=== PATIENT | male | born 1980 | race Caucasian/White ===

== ENCOUNTER 2024-03-02 22:48 | Emergency (ER) | payer OTHER, SELFPAY ==
[2024-03-02 22:50] VITALS: BP 114/75
--- NOTE | 2024-03-02 23:11 | ED.GENMED ---
History of Present Illness
<MAXWELL Shepard - Last Filed: 03/03/24 01:54>
General
Chief Complaint: Abdominal Symptoms
Source: patient and significant other
Exam Limitations: clinical condition (actively retching and vomiting)
Time Seen by Provider: 03/02/24 23:09
Nursing documentation reviewed up to this point in time: agreed with
History of Present Illness
History of Present Illness:
Pt is a 43 yo M with no significant PMH who presents to the ED with nausea, vomiting and diarrhea x 4 hours. He states he began to feel bad when he got home from work and then symptoms onset around 19:00. He states he has had 6-7 episodes of
non-bloody vomiting and multiple episodes of non-bloody, watery diarrhea. He states he feels very dehydrated and fatigued. Pt states the only thing he has to eat today was a hoagie from [employer] and thinks he may have food poisoning. Pt denies sick
contacts. Pt denies ROMERO, chest pain, cough, SOB, dyspnea.
If applicable-neuro sx onset
Onset of symptoms known: Yes
Date of onset of symptoms: 03/02/24
Time of onset of symptoms: 19:00
Past History
<MAXWELL Shepard - Last Filed: 03/03/24 01:54>
Past History
ED Past Medical History: None
ED Past Surgical History: None
Social History
Tobacco: Non-smoker
Alcohol: Occasional
Drug: None
Personal:
Living: with family
Employment: Employed
Family History
Family History: Cancer (Mother had breast cancer)
Review of Systems
<MAXWELL Shepard - Last Filed: 03/03/24 01:54>
Review of Systems
Allergies reviewed?: Yes
Other source history: family
Constitutional: Reports fatigue; Denies fever or chills
Respiratory: Denies cough or trouble breathing
Cardiac: Denies chest pain
ABD/GI: Reports abdominal pain, nausea, vomiting and diarrhea; Denies bloody stools or black stools
: Denies dysuria or flank pain
Musculoskeletal: Reports no symptoms
Neurological: Denies dizzy, headache, weakness or numbness
Phy Exam
<ST DreaNE - Last Filed: 03/03/24 01:54>
General Physical Exam
General Presentation: moderate distress (actively retching)
General age: appears stated age
General Skin: warm and diaphoretic
General Habitus: normal
General Mental: alert
General Hydration: dry mucous membranes
Cardiovascular Exam
Cardiovascular Exam: no gallop, no murmur and tachycardia
Pulmonary Exam
Pulmonary Exam: lungs clear and no respiratory distress
Gastrointestinal Exam
Gastrointestinal Exam: non distended, no cva tenderness and guarding
Palpation: generalized: Moderate tenderness
Neurological Exam
Neurological Exam: alert, oriented x3, no motor deficits, no sensory deficits and speech normal
<Alfredo Briscoe DO - Last Filed: 03/03/24 01:07>
Physical Exam
Physical Exam:
Physical Exam
General: 43 male vomiting
Neck: Lips are slightly dry
Heart: s1/s2 regular rate and rhythm, no murmur. equal radial pulses.
Lungs: no acute respiratory distress. clear bilaterally
Abdomen: Soft mild diffuse tenderness
Neuro: alert and oriented. no focal neurological deficits
Skin: no rash
Psychiatric: well kept. interactive and cooperative
Extremities: no edema.
Course
<MAXWELL Shepard - Last Filed: 03/03/24 01:54>
Orders/Labs/Results
Orders:
Orders
03/02/24 23:20
0.9% Sodium Chloride 1000 ml [Nss] 1,000 ml IV BOLUS
Ondansetron Injectable [Zofran] 4 mg IV NOW STA
03/02/24 23:40
Complete Blood Count/With Diff Urgent
Comprehensive Metabolic Panel Urgent
Lipase Urgent
03/03/24 01:07
Ondansetron Orally Disint [Zofran Odt (Orally Disintegrating)] 4 mg PO NOW STA
Abnormal Lab Results
03/02/24
23:40
WBC 14.5 H 10^3/uL
(4.8-10.8)
MPV 10.7 H fL
(7.4-10.4)
Abs Immat Gran (auto) 0.1 H 10^3/uL
(0-0.05)
Absolute Neuts (auto) 13.4 H 10^3/uL
(1.4-6.5)
Absolute Lymphs (auto) 0.3 L 10^3/uL
(1.2-3.4)
Immature Gran % 0.6 H %
(0-0.5)
Neutrophils % 92.8 H %
(42.2-75.2)
Lymphocytes % 2.3 L %
(20.5-51.1)
Carbon Dioxide 16 L mmol/L
(22-30)
BUN 22 H mg/dl
(9-20)
Glucose 156 H mg/dl
(70-99)
Total Bilirubin 1.8 H mg/dl
(0.2-1.3)
Albumin 5.1 H g/dl
(3.5-5.0)
03/02/24 23:40
03/02/24 23:40
Vital Signs
Initial and Last Documented VS:
Initial Vital Signs
Temp Pulse Resp BP Pulse Ox
98.4 F 104 20 114/75 98
03/02/24 22:50 03/02/24 22:50 03/02/24 22:50 03/02/24 22:50 03/02/24 22:50
Last Documented Vital Signs
Temp Pulse Resp BP Pulse Ox
98.4 F 104 20 114/75 98
03/02/24 22:50 03/02/24 22:50 03/02/24 22:50 03/02/24 22:50 03/02/24 22:50
<Alfredo Briscoe, DO - Last Filed: 03/03/24 01:07>
Orders/Labs/Results
Orders:
Orders
03/02/24 23:20
0.9% Sodium Chloride 1000 ml [Nss] 1,000 ml IV BOLUS
Ondansetron Injectable [Zofran] 4 mg IV NOW STA
03/02/24 23:40
Complete Blood Count/With Diff Urgent
Comprehensive Metabolic Panel Urgent
Lipase Urgent
03/03/24 01:07
Ondansetron Orally Disint [Zofran Odt (Orally Disintegrating)] 4 mg PO NOW STA
Abnormal Lab Results
03/02/24
23:40
WBC 14.5 H 10^3/uL
(4.8-10.8)
MPV 10.7 H fL
(7.4-10.4)
Abs Immat Gran (auto) 0.1 H 10^3/uL
(0-0.05)
Absolute Neuts (auto) 13.4 H 10^3/uL
(1.4-6.5)
Absolute Lymphs (auto) 0.3 L 10^3/uL
(1.2-3.4)
Immature Gran % 0.6 H %
(0-0.5)
Neutrophils % 92.8 H %
(42.2-75.2)
Lymphocytes % 2.3 L %
(20.5-51.1)
Carbon Dioxide 16 L mmol/L
(22-30)
BUN 22 H mg/dl
(9-20)
Glucose 156 H mg/dl
(70-99)
Total Bilirubin 1.8 H mg/dl
(0.2-1.3)
Albumin 5.1 H g/dl
(3.5-5.0)
03/02/24 23:40
03/02/24 23:40
Vital Signs
Initial and Last Documented VS:
Initial Vital Signs
Temp Pulse Resp BP Pulse Ox
98.4 F 104 20 114/75 98
03/02/24 22:50 03/02/24 22:50 03/02/24 22:50 03/02/24 22:50 03/02/24 22:50
Last Documented Vital Signs
Temp Pulse Resp BP Pulse Ox
98.4 F 104 20 114/75 98
03/02/24 22:50 03/02/24 22:50 03/02/24 22:50 03/02/24 22:50 03/02/24 22:50
<MAXWELL Shepard - Last Filed: 03/03/24 01:54>
MDM/Problems Addressed
Differential Diagnosis Includes:
acute gastroenteritis, pancreatitis, cholelithiasis, kidney stones
<Alfredo Briscoe DO - Last Filed: 03/03/24 01:07>
MDM/Problems Addressed
Differential Diagnosis Includes:
Norovirus enteritis Food poisoning less likely appendicitis or gallbladder
MDM/Problems Addressed:
Nausea vomiting diarrhea
<MAXWELL Shepard - Last Filed: 03/03/24 01:54>
*Critical Care Note
Total Time (30-74mins, 75-104mins- exclusive of procedures): Not Applicable
<MAXWELL Shepard - Last Filed: 03/03/24 01:54>
Update Note
Update Note:
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
exams
03/03/24 @ 00:20am: Pt states nausea has subsided and he has no episodes of vomiting since administration of medication and fluids; He is sitting comfortably in bed, chewing on ice and has asked for apple juice; Will give him juice to sip on and
continue to monitor - AD
03/03/24 @ 00:55am: Pt tolerated apple juice PO well; states he is feeling 'a lot better'; pt able to ambulate to bathroom on own; states he is ready to go home
<Alfredo Briscoe DO - Last Filed: 03/03/24 01:07>
Update Note
Update Note:
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
exams
03/03/24 @ 00:20am: Pt states nausea has subsided and he has no episodes of vomiting since administration of medication and fluids; He is sitting comfortably in bed, chewing on ice and has asked for apple juice; Will give him juice to sip on and
continue to monitor - AD
03/03/24 @ 00:55am: Pt tolerated apple juice PO well; states he is feeling 'a lot better'; pt able to ambulate to bathroom on own; states he is ready to go home
1 AM ER attending, patient states he is feeling much better abdomen is soft and nontender sitting upright tolerating p.o. fluids
ED Attending Note
<MAXWELL Shepard - Last Filed: 03/03/24 01:54>
-
Portions of this chart may have been created with voice recognition software.� Occasional wrong word or��sound alike� substitutions may have occurred due to the inherent limitations of voice recognition software.
Discharge Plan
Departure
Patient Disposition: Home (Routine Discharge)
Date of Disposition: 03/03/24
Time of Disposition: 01:06
Patient with high blood pressure during this ER visit?: No
Condition: Good
Discharge Problem:
Vomiting and diarrhea
Instructions: Diarrhea in teens and adults, Dehydration, Adult (DC), [place] Diet, Nausea and Vomiting, Adult (DC)
Prescriptions:
New
ondansetron 4 mg tablet,disintegrating
4 mg PO TID PRN (Reason: nausea and vomiting) Qty: 20 0RF
Referrals:
UNKNOWN - PT DOES,NOT KNOW [Family Provider] -
Activity Restrictions/Additional Instructions:
Return to the ER for worsening symptoms or any other concerns
Interventions
Interventions:
*General Assessment Last Done: 03/02/24 22:50
Discharge Date and Time
Print Language: NAURUAN
[2024-03-02] MEDS: NSS 1000 IV (23:43)
[2024-03-02 23:51] LABS: % Basophils 0.3 % (0-2); % Eosinophils 0.1 % (0-6); % Immature Granulocytes 0.6 % (0-0.5); % Lymphocytes 2.3 % (20.5-51.1); % Monocytes 3.9 % (1.7-9.3); % Neutrophils 92.8 % (42.2-75.2); Absolute Basophils 0.1 10^3/uL (0-0.2); Absolute Immature Granulocytes 0.1 10^3/uL (0-0.05); Absolute Lymphocytes 0.3 10^3/uL (1.2-3.4); Absolute Monocytes 0.6 10^3/uL (0.1-0.6); Absolute Neutrophils 13.4 10^3/uL (1.4-6.5); Hematocrit 47.9 % (39.0-52.0); Mean Corp Hgb Conc. 35.5 g/dL (33.0-37.0); Mean Corpuscular Hgb 30.7 pg (27.0-31.0); Mean Corpuscular Volume 86.6 fL (80.0-94.0); Mean Platelet Volume 10.7 fL (7.4-10.4); Nucleated Red Blood Cells % 0 % (-); Platelet Count 291 10^3/uL (130-400); Red Blood Cell Count 5.53 10^6/uL (4.70-6.10); Red Cell Dist. Width 12.2 % (11.5-14.5); White Blood Cell Count 14.5 10^3/uL (4.8-10.8)
[2024-03-02] MEDS: ZOFRAN 4 MG IV (23:59)
[2024-03-03 00:20] LABS: ALT (SGPT) 29 U/L (0-50); AST (SGOT) 31 U/L (17-59); Albumin 5.1 g/dl (3.5-5.0); Alkaline Phosphatase 49 U/L (38-126); Blood Urea Nitrogen 22 mg/dl (9-20); Calcium 9.9 mg/dl (8.4-10.2); Carbon Dioxide 16 mmol/L (22-30); Chloride 106 mmol/L (98-107); Glucose 156 mg/dl (70-99); Potassium 4.2 mmol/L (3.5-5.1); Sodium 139 mmol/L (135-145); Total Bilirubin 1.8 mg/dl (0.2-1.3); Total Protein 8.1 g/dl (6.3-8.2); eGFR > 60.00
[2024-03-03 00:38] LABS: Lipase 33 U/L (23-300)
[2024-03-03] MEDS: ZOFRAN ODT (ORALLY DISINTEGRATING) 4 MG PO (02:00)
== END 2024-03-03 02:03 | disposition home or self-care (01) ==
LOC: EMR 22:48
PROVIDERS: EMERGENCY PHYSICIAN Emergency Medicine
DX: R11.2 Nausea with vomiting, unspecified (principal)
CPT/HCPCS: 99282; 96374; 80053; 83690; 85025

== ENCOUNTER → 2024-08-18 15:17 | Outpatient (REF) | payer OTHER, SELFPAY | LOC: RAD 15:17 | PROVIDERS: ATTENDING PHYSICIAN Physician Assistant Medical; FAMILY PHYSICIAN Family Medicine | DX: N50.811 Right testicular pain (principal) | CPT/HCPCS: 76870; 93976 ==

== ENCOUNTER → 2025-02-01 08:37 | Outpatient (REF) | payer OTHER, SELFPAY | LOC: RAD 08:37 | PROVIDERS: ATTENDING PHYSICIAN Internal Medicine Gastroenterology; FAMILY PHYSICIAN Family Medicine | DX: R10.12 Left upper quadrant pain (principal) | CPT/HCPCS: 76700 ==